=== PATIENT | male | born 1950 | race Caucasian/White ===

== ENCOUNTER 2023-08-11 08:59 | Emergency (ER) | payer MEDICARE, BC ==
[~2023-08-11] VITALS: Ht 177.8 cm; Wt 81.6 kg
[~2023-08-11 08:59] MED LIST: ATOR80TA PO
[2023-08-11] MEDS ORDERED: TDAP DIPH,PERTUSS,TET VAC/PF 0.5 ML DISP.SYRIN IM ONE ×2 (09:45→09:51)
[2023-08-11] MEDS ORDERED: LIDOCAINE 2%-EPI 1:100,000 20 ML VIAL ONE (09:57)
[2023-08-11] MEDS ORDERED: LIDOCAINE 2%-EPI 1:100,000 20 ML VIAL IJ ONE (10:00)
[2023-08-11] MEDS ORDERED: LIDOCAINE 4% TOPICAL 50 ML BOTTLE ONE (10:32)
[2023-08-11] MEDS ORDERED: LIDOCAINE 4% TOPICAL 50 ML BOTTLE TP ONE (10:45)
[2023-08-11] MEDS ORDERED: HYDR-4209 PO ×4 (11:13→16:04)
[2023-08-11 11:22] VITALS: BP 139/70; TEMP 97.8; O2SAT 96
== END 2023-08-11 11:22 | disposition home or self-care (01) ==
LOC: ER 08:59
DX: S01.112A Laceration without foreign body of left eyelid and periocular area, initial encounter (principal); F17.210 Nicotine dependence, cigarettes, uncomplicated; Z88.0 Allergy status to penicillin; Z79.899 Other long term (current) drug therapy; W01.0XXA Fall on same level from slipping, tripping and stumbling without subsequent striking against object, initial encounter; Y93.89 Activity, other specified; Y92.89 Other specified places as the place of occurrence of the external cause; Y99.8 Other external cause status
CPT/HCPCS: 90715; A4606; A4663

== ENCOUNTER 2025-01-11 17:13 | Inpatient (IN) | payer MEDICARE, BC ==
[~2025-01-11] VITALS: Ht 177.8 cm; Wt 66.2 kg
[~2025-01-11 17:13] MED LIST changes: +HYDR-4209 PO
[2025-01-11] MEDS: VANCOMYCIN IV 1,000 MG in IV DEXTROSE 5% 250 ML IV ONE (17:30)
[2025-01-11] MEDS: CEFTRIAXONE 1 G in IV DEXTROSE 5% 50 ML IV ONE (17:30)
[2025-01-11] MEDS ORDERED: ADENOSINE 6 MG/2 ML SYR IV ONE (17:34)
[2025-01-11] MEDS: IV NORMAL SALINE 1000 ML BAG IV ONE (17:49)
[2025-01-11 17:59] LABS: CALCIUM 8.6 mg/dL (8.5-10.1); CARBON DIOXIDE 22 mmol/L (21-32); CHLORIDE 102 mmol/L (98-107); CREATININE 1.7 mg/dL (0.6-1.3); GLUCOSE 103 mg/dL (74-106); POTASSIUM 4.5 mmol/L (3.5-5.1); SODIUM SERUM 137 mmol/L (136-145); UREA NITROGEN, BLOOD 33 mg/dL (7-18)
[2025-01-11 18:00] LABS: BASOPHILS % (AUTO) 0.2 % (0.0-2.0); EOSINOPHILS % (AUTO) 0.1 % (0.0-7.0); HEMATOCRIT 23.6 % (36.7-47.1); HEMOGLOBIN 7.9 g/dL (12.5-16.3); LYMPHOCYTES # (AUTO) 0.2 K/uL (0.8-4.8); LYMPHOCYTES % (AUTO) 6.1 % (20.5-51.5); MEAN CORPUSCULAR HEMOGLOBIN 30.3 uug (23.8-33.4); MEAN CORPUSCULAR HGB CONC 34 g/dL (32.5-36.3); MEAN CORPUSCULAR VOLUME 90.5 fL (73.0-96.2); MONOCYTES # (AUTO) 0.1 K/uL (0.1-1.30); MONOCYTES % (AUTO) 1.5 % (0.0-11.0); NEUTROPHILS # (AUTO) 3.3 K/uL (1.8-8.9); NEUTROPHILS % (AUTO) 92.1 % (38.5-71.5); PLATELET COUNT (AUTO) 52 K/uL (152-348); RED BLOOD CELL COUNT(AUTO) 2.61 MIL/uL (4.06-5.63); WHITE BLOOD COUNT (AUTO) 3.6 K/uL (3.6-10.2)
[2025-01-11 18:01] LABS: DIFFERENTIAL COMMENT 1
[2025-01-11 18:04] LABS: ALANINE AMINOTRANSFERASE 28 U/L (16-63); ALBUMIN 2.1 g/dL (3.4-5.0); ALKALINE PHOSPHATASE 259 U/L (50-136); ASPARTATE AMINOTRANSFERASE 31 U/L (15-37); BILIRUBIN,DIRECT 0.4 mg/dL (0.0-0.2); BILIRUBIN,TOTAL 0.8 mg/dL (0.2-1.0); TOTAL PROTEIN, SERUM 6.5 g/dL (6.4-8.2)
[2025-01-11 18:09] LABS: LACTIC ACID 3.1 mmol/L (0.4-2.0)
[2025-01-11] MEDS ORDERED: CEFTRIAXONE /D5W 50ML IVPB **ER PYXIS IV ONE (18:27)
[2025-01-11 18:32] LABS: *BILIRUBIN,URIN 1+ (NEGATIVE); *BLOOD, URINE 2+ (NEGATIVE); *CLARITY,URINE CLEAR (CLEAR); *COLOR,URINE YELLOW (YELLOW); *KETONES,URINE NEGATIVE (NEGATIVE); *PROTEIN,URINE 3+ (NEGATIVE); *UROBILINOGEN,URINE 0.2 E.U./dl (NORMAL); LEUKOCYTE ESTERASE ,URINE NEGATIVE (NEGATIVE); NITRITE, URINE NEGATIVE (NEGATIVE); PH,URINE 5.5 (5.0-8.0); UGLUCOSE NEGATIVE (NEGATIVE)
[2025-01-11] MEDS ORDERED: VANCOMYCIN IV 200 ML ONE (18:42)
[2025-01-11] MEDS ORDERED: PIPERACILLIN/TAZOBACTAM/D5W 50 ML ONE (18:50)
[2025-01-11] MEDS: ADENOSINE 6 MG/2 ML SYR IV ONE (18:53)
[2025-01-11 19:11] LABS: BACTERIA,URINE FEW /HPF (NONE SEEN); SQUAMOUS EPITHELIAL CELL,UR FEW /HPF (NONE SEEN); WBC,URINE 0-3 /HPF (0-3)
[2025-01-11 19:12] LABS: URINE AMORPHOUS URATE MODERATE /HPF
[2025-01-11] MEDS ORDERED: ACETAMINOPHEN 325 MG TABLET PO PRN (20:30)
[2025-01-11] MEDS ORDERED: ONDANSETRON 4 MG/2 ML VIAL IV PRN (20:30)
[2025-01-11] MEDS ORDERED: LEVALBUTEROL HCL NEB 0.63 MG/3 ML NEBU NEB PRN (20:30)
[2025-01-11] MEDS ORDERED: METOPROLOL TARTRATE 5 MG/5 ML VIAL IVP PRN (20:30)
[2025-01-11] MEDS ORDERED: ACETAMINOPHEN 650 MG SUPP.RECT RC PRN (20:30)
[2025-01-11] MEDS ORDERED: PHENYLEPHRINE IV 50 MG in IV NORMAL SALINE 245 ML IV PRN (20:30)
[2025-01-11] MEDS ORDERED: PHENYLEPHRINE 10 MG/1 ML VIAL ONE (23:00)
[2025-01-11] MEDS: PHENYLEPHRINE IV 50 MG in IV NORMAL SALINE 245 ML IV PRN (23:45)
[2025-01-11] MEDS ORDERED: MEROPENEM 500MG/NS 50ML PB ***ER PYXIS ONLY IV ONE (23:50)
[2025-01-11] MEDS: MEROPENEM 500 MG in IV NORMAL SALINE 50 ML IV SCH (23:52)
[2025-01-12] VITALS (86 sets, daily range): BP systolic 81–138; BP diastolic 29–79; TEMP 97.6–98; O2SAT 94–100
[2025-01-12] MEDS ORDERED: PHENYLEPHRINE 10 MG/1 ML VIAL ONE (03:12)
[2025-01-12] MEDS: IV NS 1000 ML 1,000 ML IV PRN (06:14)
[2025-01-12 07:33] LABS: BASOPHILS % (AUTO) 0.2 % (0.0-2.0); HEMATOCRIT 26.5 % (36.7-47.1); HEMOGLOBIN 8.8 g/dL (12.5-16.3); LYMPHOCYTES # (AUTO) 0.7 K/uL (0.8-4.8); MEAN CORPUSCULAR HEMOGLOBIN 30.6 uug (23.8-33.4); MEAN CORPUSCULAR HGB CONC 33 g/dL (32.5-36.3); MEAN CORPUSCULAR VOLUME 92.3 fL (73.0-96.2); MONOCYTES # (AUTO) 0.5 K/uL (0.1-1.30); MONOCYTES % (AUTO) 4.2 % (0.0-11.0); NEUTROPHILS # (AUTO) 11.8 K/uL (1.8-8.9); NEUTROPHILS % (AUTO) 90.6 % (38.5-71.5); PLATELET COUNT (AUTO) 50 K/uL (152-348); RED BLOOD CELL COUNT(AUTO) 2.87 MIL/uL (4.06-5.63); RED CELL DISTRIBUTION WIDTH 15.4 % (12.1-16.2)
[2025-01-12 08:05] LABS: DIFFERENTIAL COMMENT 1
[2025-01-12 08:27] LABS: ALANINE AMINOTRANSFERASE 46 U/L (16-63); ALBUMIN 2.2 g/dL (3.4-5.0); ALKALINE PHOSPHATASE 252 U/L (50-136); ASPARTATE AMINOTRANSFERASE 63 U/L (15-37); BILIRUBIN,TOTAL 0.7 mg/dL (0.2-1.0); CARBON DIOXIDE 20 mmol/L (21-32); CHLORIDE 107 mmol/L (98-107); CHOLESTEROL 60 mg/dL (<200); CREATININE 1.6 mg/dL (0.6-1.3); GLUCOSE 97 mg/dL (74-106); HDL CHOLESTEROL 22 mg/dL (40-60); IRON, SERUM 33 ug/dL (50-175); MAGNESIUM 2.3 mg/dL (1.8-2.4); PHOSPHOROUS 4.7 mg/dL (2.5-4.9); POTASSIUM 4.7 mmol/L (3.5-5.1); SODIUM SERUM 142 mmol/L (136-145); TOTAL PROTEIN, SERUM 7.4 g/dL (6.4-8.2); TRIGLYCERIDES 114 MG/DL (30-150); UREA NITROGEN, BLOOD 30 mg/dL (7-18)
[2025-01-12] MEDS: PANTOPRAZOLE SODIUM 40 MG VIAL IV SCH (09:00)
[2025-01-12] MEDS ORDERED: VANCOMYCIN IV 1,000 MG in IV DEXTROSE 5% 250 ML IV SCH ×2 (09:00→17:00)
[2025-01-12 09:08] LABS: THYROID STIMULATING HORMONE 2.206 mIU/mL (0.358-3.740)
[2025-01-12] MEDS: PHENYLEPHRINE IV 100 MG in IV NORMAL SALINE 240 ML IV PRN (11:41)
[2025-01-12] MEDS ORDERED: ALBUTEROL SULFATE 1.25 MG/3 ML NEBU NEB PRN (12:00)
[2025-01-12 12:15] LABS: BAND % (MANUAL) 10 % (0-10); LYMPHOCYTES % (MANUAL) 4 % (20-40); METAMYELOCYTES % 1 % (0-1); MONOCYTES % (MANUAL) 3 % (2-10); NEUTROPHILS % (MANUAL) 82 % (42-75)
[2025-01-12 12:16] LABS: ANISOCYTOSIS 1+; PLATELET ESTIMATE DECREASED
[2025-01-12] MEDS: VANCOMYCIN IV 1,000 MG in IV DEXTROSE 5% 250 ML IV ONE (12:54)
[2025-01-12] MEDS: METRONIDAZOLE 500 MG/NS 100ML 500 MG in PREMIXED 1 EACH IV SCH (18:26)
[2025-01-13] VITALS (100 sets, daily range): BP systolic 71–174; BP diastolic 35–111; TEMP 97.7–97.8; O2SAT 91–100
[2025-01-13 06:22] LABS: BASOPHILS % (AUTO) 0.1 % (0.0-2.0); DIFFERENTIAL COMMENT 0; EOSINOPHILS % (AUTO) 0.3 % (0.0-7.0); HEMATOCRIT 22.2 % (36.7-47.1); LYMPHOCYTES # (AUTO) 0.6 K/uL (0.8-4.8); LYMPHOCYTES % (AUTO) 8.6 % (20.5-51.5); MEAN CORPUSCULAR HEMOGLOBIN 30.6 uug (23.8-33.4); MEAN CORPUSCULAR HGB CONC 34 g/dL (32.5-36.3); MEAN CORPUSCULAR VOLUME 91.1 fL (73.0-96.2); MONOCYTES # (AUTO) 0.4 K/uL (0.1-1.30); MONOCYTES % (AUTO) 6.1 % (0.0-11.0); NEUTROPHILS # (AUTO) 5.9 K/uL (1.8-8.9); NEUTROPHILS % (AUTO) 84.9 % (38.5-71.5); RED CELL DISTRIBUTION WIDTH 15.4 % (12.1-16.2)
[2025-01-13 06:37] LABS: HEMOGLOBIN 7.4 g/dL (12.5-16.3); RED BLOOD CELL COUNT(AUTO) 2.43 MIL/uL (4.06-5.63)
[2025-01-13 06:39] LABS: PLATELET COUNT (AUTO) 44 K/uL (152-348)
[2025-01-13 07:02] LABS: CALCIUM 8.4 mg/dL (8.5-10.1); CARBON DIOXIDE 20 mmol/L (21-32); CHLORIDE 109 mmol/L (98-107); CREATININE 1.3 mg/dL (0.6-1.3); GLUCOSE 96 mg/dL (74-106); POTASSIUM 4.3 mmol/L (3.5-5.1); SODIUM SERUM 137 mmol/L (136-145); UREA NITROGEN, BLOOD 28 mg/dL (7-18)
[2025-01-13 07:03] LABS: ALANINE AMINOTRANSFERASE 31 U/L (16-63); ALBUMIN 1.6 g/dL (3.4-5.0); ALKALINE PHOSPHATASE 166 U/L (50-136); ASPARTATE AMINOTRANSFERASE 39 U/L (15-37); BILIRUBIN,TOTAL 0.4 mg/dL (0.2-1.0); PHOSPHOROUS 2.7 mg/dL (2.5-4.9); TOTAL PROTEIN, SERUM 5.7 g/dL (6.4-8.2); VANCOMYCIN,RANDOM 11.8 ug/mL (20.0-30.0)
[2025-01-13] MEDS ORDERED: IOHEXOL 350 100 ML INFUS..BTL ONE (08:27)
[2025-01-13 08:29] LABS: BAND % (MANUAL) 5 % (0-10); LYMPHOCYTES % (MANUAL) 7 % (20-40); MONOCYTES % (MANUAL) 5 % (2-10); MYELOCYTES % 1 % (0-0); NEUTROPHILS % (MANUAL) 82 % (42-75); PLATELET ESTIMATE DECREASED
[2025-01-13 08:30] LABS: ANISOCYTOSIS 1+; TEAR DROP CELLS FEW
[2025-01-13] MEDS ORDERED: REMEDY ESSENTIAL ZINC PASTE 113 GM TOP PRN (11:00)
[2025-01-13] MEDS ORDERED: VANCOMYCIN IV 1,000 MG in IV DEXTROSE 5% 250 ML IV ONE (12:00)
[2025-01-13] MEDS: AZITHROMYCIN 250 MG TABLET PO ONE (22:40)
[2025-01-14] VITALS (38 sets, daily range): BP systolic 87–147; BP diastolic 49–76; TEMP 97.8–98.3; O2SAT 93–100
[2025-01-14 05:47] LABS: CALCIUM 8.3 mg/dL (8.5-10.1); CARBON DIOXIDE 23 mmol/L (21-32); CHLORIDE 110 mmol/L (98-107); CREATININE 1.1 mg/dL (0.6-1.3); GLUCOSE 87 mg/dL (74-106); SODIUM SERUM 141 mmol/L (136-145); UREA NITROGEN, BLOOD 23 mg/dL (7-18)
[2025-01-14] MEDS: PANTOPRAZOLE SODIUM 40 MG TABLET.DR PO SCH (06:55)
[2025-01-14 07:52] LABS: BASOPHILS % (AUTO) 0.3 % (0.0-2.0); DIFFERENTIAL COMMENT 0; EOSINOPHILS % (AUTO) 0.2 % (0.0-7.0); HEMATOCRIT 28.8 % (36.7-47.1); HEMOGLOBIN 9.8 g/dL (12.5-16.3); LYMPHOCYTES # (AUTO) 0.4 K/uL (0.8-4.8); MEAN CORPUSCULAR HEMOGLOBIN 30.6 uug (23.8-33.4); MEAN CORPUSCULAR HGB CONC 34 g/dL (32.5-36.3); MEAN CORPUSCULAR VOLUME 89.8 fL (73.0-96.2); MONOCYTES # (AUTO) 0.3 K/uL (0.1-1.30); MONOCYTES % (AUTO) 8.7 % (0.0-11.0); NEUTROPHILS # (AUTO) 2.9 K/uL (1.8-8.9); NEUTROPHILS % (AUTO) 78.8 % (38.5-71.5); RED CELL DISTRIBUTION WIDTH 15.2 % (12.1-16.2); WHITE BLOOD COUNT (AUTO) 3.6 K/uL (3.6-10.2)
[2025-01-14] MEDS: PROTEIN SUPPLEMENT (PROSTAT) 30 ML LIQUID PO SCH (08:00)
[2025-01-14 08:21] LABS: PLATELET COUNT (AUTO) 41 K/uL (152-348)
[2025-01-14 15:16] LABS: BAND % (MANUAL) 2 % (0-10); LYMPHOCYTES % (MANUAL) 12 % (20-40); MONOCYTES % (MANUAL) 7 % (2-10); NEUTROPHILS % (MANUAL) 79 % (42-75); PLATELET ESTIMATE MARKED DECREASED
[2025-01-14 15:17] LABS: ANISOCYTOSIS 1+
[2025-01-14] MEDS: MEROPENEM 1 G in IV NORMAL SALINE 100 ML IV SCH (17:42)
[2025-01-14] MEDS: AZITHROMYCIN 250 MG TABLET PO SCH (21:03)
[2025-01-14] MEDS ORDERED: VANCOMYCIN IV 200 ML ONE (21:51)
[2025-01-14] MEDS ORDERED: VANCOMYCIN HCL 500 MG VIAL ONE (21:59)
[2025-01-14] MEDS: VANCOMYCIN IV 1,250 MG in IV NORMAL SALINE 250 ML IV ONE (22:20)
[2025-01-15] VITALS (19 sets, daily range): BP systolic 98–137; BP diastolic 52–84; TEMP 97.1–98.8; O2SAT 92–99
[2025-01-15 05:10] LABS: BASOPHILS % (AUTO) 0.4 % (0.0-2.0); EOSINOPHILS % (AUTO) 0.2 % (0.0-7.0); LYMPHOCYTES # (AUTO) 0.5 K/uL (0.8-4.8); MEAN CORPUSCULAR HEMOGLOBIN 30.9 uug (23.8-33.4); MEAN CORPUSCULAR HGB CONC 34 g/dL (32.5-36.3); MEAN CORPUSCULAR VOLUME 89.9 fL (73.0-96.2); MONOCYTES # (AUTO) 0.4 K/uL (0.1-1.30); MONOCYTES % (AUTO) 11.4 % (0.0-11.0); NEUTROPHILS # (AUTO) 2.4 K/uL (1.8-8.9); RED CELL DISTRIBUTION WIDTH 15.1 % (12.1-16.2); WHITE BLOOD COUNT (AUTO) 3.2 K/uL (3.6-10.2)
[2025-01-15 05:22] LABS: RED BLOOD CELL COUNT(AUTO) 2.08 MIL/uL (4.06-5.63)
[2025-01-15 05:23] LABS: CALCIUM 7.9 mg/dL (8.5-10.1); CARBON DIOXIDE 24 mmol/L (21-32); CHLORIDE 110 mmol/L (98-107); GLUCOSE 95 mg/dL (74-106); MAGNESIUM 1.7 mg/dL (1.8-2.4); PHOSPHOROUS 2.8 mg/dL (2.5-4.9); POTASSIUM 3.8 mmol/L (3.5-5.1); SODIUM SERUM 140 mmol/L (136-145); UREA NITROGEN, BLOOD 20 mg/dL (7-18)
[2025-01-15 05:24] LABS: DIFFERENTIAL COMMENT 1; HEMATOCRIT 18.7 % (36.7-47.1); HEMOGLOBIN 6.4 g/dL (12.5-16.3); PLATELET COUNT (AUTO) 48 K/uL (152-348)
[2025-01-15 08:11] LABS: BASOPHILS % (AUTO) 0.2 % (0.0-2.0); EOSINOPHILS % (AUTO) 0.1 % (0.0-7.0); HEMATOCRIT 21.2 % (36.7-47.1); LYMPHOCYTES # (AUTO) 0.5 K/uL (0.8-4.8); LYMPHOCYTES % (AUTO) 14.1 % (20.5-51.5); MEAN CORPUSCULAR HEMOGLOBIN 31.2 uug (23.8-33.4); MEAN CORPUSCULAR HGB CONC 35 g/dL (32.5-36.3); MONOCYTES # (AUTO) 0.4 K/uL (0.1-1.30); NEUTROPHILS # (AUTO) 2.6 K/uL (1.8-8.9); NEUTROPHILS % (AUTO) 73.6 % (38.5-71.5); PLATELET COUNT (AUTO) 55 K/uL (152-348); RED CELL DISTRIBUTION WIDTH 15.1 % (12.1-16.2); WHITE BLOOD COUNT (AUTO) 3.5 K/uL (3.6-10.2)
[2025-01-15 08:18] LABS: DIFFERENTIAL COMMENT 1; HEMOGLOBIN 7.4 g/dL (12.5-16.3); RED BLOOD CELL COUNT(AUTO) 2.35 MIL/uL (4.06-5.63)
[2025-01-15] MEDS: MAGNESIUM SULFATE/D5W 100 ML IV SCH (09:12)
[2025-01-15] MEDS: VANCOMYCIN IV 1,000 MG in IV DEXTROSE 5% 250 ML IV SCH (12:43)
[2025-01-15 14:40] LABS: BAND % (MANUAL) 2 % (0-10); LYMPHOCYTES % (MANUAL) 11 % (20-40); MONOCYTES % (MANUAL) 8 % (2-10); NEUTROPHILS % (MANUAL) 79 % (42-75); PLATELET ESTIMATE DECREASED
[2025-01-15 14:41] LABS: ANISOCYTOSIS 1+; OVALOCYTES 1+
[2025-01-15 14:42] LABS: TEAR DROP CELLS OCC
[2025-01-15] MEDS ORDERED: LEVO500T90 PO (16:35)
[2025-01-15 18:43] LABS: BAND % (MANUAL) 2 % (0-10); LYMPHOCYTES % (MANUAL) 16 % (20-40); MONOCYTES % (MANUAL) 8 % (2-10); NEUTROPHILS % (MANUAL) 74 % (42-75); PLATELET ESTIMATE DECREASED
[2025-01-15 18:44] LABS: ANISOCYTOSIS 1+; OVALOCYTES 1+
== END 2025-01-15 17:03 | disposition home or self-care (01) | DRG 871 ==
LOC: ER 17:19 → TELE3 20:18 → CCUOV 22:57 → CCU 01-12 07:30
PROVIDERS: ADMIT Internal Medicine; ATTEND Internal Medicine
PROC: 05HC33Z Insertion of Infusion Device into Left Basilic Vein, Percutaneous Approach (ICD-10-PCS; principal; 2025-01-13)
PROC: 30233N1 Transfusion of Nonautologous Red Blood Cells into Peripheral Vein, Percutaneous Approach (ICD-10-PCS; 2025-01-15)
DX: A41.51 Sepsis due to Escherichia coli [E. coli] (principal); I21.4 Non-ST elevation (NSTEMI) myocardial infarction; J15.9 Unspecified bacterial pneumonia; J96.01 Acute respiratory failure with hypoxia; R65.21 Severe sepsis with septic shock; N17.0 Acute kidney failure with tubular necrosis; I21.A1 Myocardial infarction type 2; N17.9 Acute kidney failure, unspecified; E87.20 Acidosis, unspecified; I47.10 Supraventricular tachycardia, unspecified; E44.0 Moderate protein-calorie malnutrition; J91.8 Pleural effusion in other conditions classified elsewhere; D61.818 Other pancytopenia; D46.9 Myelodysplastic syndrome, unspecified; Z85.51 Personal history of malignant neoplasm of bladder; Z85.6 Personal history of leukemia; Z88.0 Allergy status to penicillin; E78.5 Hyperlipidemia, unspecified; Z68.20 Body mass index [BMI] 20.0-20.9, adult; E88.09 Other disorders of plasma-protein metabolism, not elsewhere classified; D69.59 Other secondary thrombocytopenia; J43.9 Emphysema, unspecified; K76.9 Liver disease, unspecified; F17.210 Nicotine dependence, cigarettes, uncomplicated; N18.9 Chronic kidney disease, unspecified; Z79.899 Other long term (current) drug therapy; Z92.21 Personal history of antineoplastic chemotherapy; R19.7 Diarrhea, unspecified; I45.10 Unspecified right bundle-branch block; Z98.890 Other specified postprocedural states
CPT/HCPCS: 36415; 71045; 71275; 83550; 83605; 83735; 84100; 84443; 84484; 85025; 85610; 85730; 86850; 86900; 86901; 86920; 87040; 87077; 87086; 93307; A4606; C1758; G0378; J0153; J0696; J2185; J2470; J2543; J3370; J3475; J3490; J7040; J7050; P9016; Q0144; Q9967